=== PATIENT | female | born 1935 | race Caucasian/White ===

== ENCOUNTER 2016-08-15 05:26 | Day surgery (SDC) | payer MEDICARE, BC ==
[~2016-08-15] VITALS: Ht 152.4 cm; Wt 50.8 kg
--- NOTE | ~2016-08-15 | OR ---
PATIENT'S NAME: BHARTI CANCINO [facility] AGE: 81 Y [address] ROOM: [place], [place] [address] LOCATION: [facility] [place] ADMIT DATE: 08/15/2016 OR/Procedure Report DISCHARGE DATE: 08/15/2016 FAMILY PHYSICIAN: Maryse Chou MD ATTENDING PHYSICIAN: Rojelio Fan SURGEON: Rojelio Fan MD KISS MACHINE OPERATOR: DATE OF PROCEDURE: 08/15/2016 PREOPERATIVE DIAGNOSIS: End-stage renal disease. POSTOPERATIVE DIAGNOSIS: End-stage renal disease. PROCEDURE: Left forearm brachiobasilic AV fistula. DIGITAL SALES REPRESENTATIVE: ROSA MARIA Ghotra. ANESTHESIA: General. ESTIMATED BLOOD LOSS: 5 mL. OPERATIVE FINDINGS: There was a good thrill and bruit in the fistula and strong radial and ulnar signal at the end of the case. DETAILS OF PROCEDURE: The patient was brought to the operating room, placed under general anesthesia, and prepped and draped in a sterile manner. Preoperative time-out was performed. The patient received preoperative antibiotics. We made a standard incision 2 cm proximal to the antecubital fossa, dissected down the fascia, and incised the fascia in a longitudinal manner. We dissected out the brachial artery. We then dissected out the basilic vein, which was ligated and transected distally. We then gave 5000 units of heparin. We clamped proximally and distally on the artery. We made an arteriotomy to a size of 4 mm, and then did a standard running 6-0 Prolene anastomosis from the vein to the artery. We removed the clamps. There was excellent flow which was confirmed using Doppler. There was a strong radial and ulnar signal. Heparin was reversed with the use of protamine. The tissues locally were sealed. Hemostasis was achieved locally with thrombin. Deep layers were closed with 2-0 and 3-0 Vicryl. Skin was closed with running 4-0 Monocryl. The patient tolerated the procedure well and was transferred to the recovery room and home later that day. ROJELIO FAN MD PATIENT'S NAME: BHARTI CANCINO [facility] AGE: 81 Y [address] ROOM: [place], [place] [address] LOCATION: [facility] [place] ADMIT DATE: 08/15/2016 OR/Procedure Report DISCHARGE DATE: 08/15/2016 FAMILY PHYSICIAN: Maryse Chou MD ATTENDING PHYSICIAN: Rojelio Fan/mely /[id number] d: 08/15/16 2311 t: 08/16/16 1014, OPERATIVE SUMMARY
[~2016-08-15 05:26] MED LIST: ACIDOPHILUS1 EAC2 PO; ACTOS30 MG PO; ASPIRIN EC81 MG PO; COREG 3.1253.125 MG PO; DEMADEX20 MG PO; GLUCOTROL5 MG PO; IRON65 PO; LANOXIN (DIGI125 MCG PO; LEVOTHROID(SYN75 MCG PO; NEURONTIN300 MG PO; OSCAL500 MG PO; TRIMETHOPRIM100 MG PO; TYLENOL EXTRA500 MG PO; VITAMIN D-40400 UNIT PO; ZYLOPRIM100 MG PO
[2016-08-15 06:22] LABS: BASOPHIL # 0.1 K/uL (0.0-0.2); BASOPHIL % 1.5 %; EOSINOPHIL # 0.1 K/uL (0.0-0.5); EOSINOPHIL % 1.9 %; HEMOGLOBIN 10.4 g/dL (10.0-15.0); IMMATURE GRANULOCYTE % 0.8 %; LYMPHOCYTE # 1.2 K/uL (0.8-4.0); LYMPHOCYTE % 23.2 %; MCH 36.6 pg (27.0-34.0); MCHC 32.5 gm/dL (32.0-36.5); MCV 112.7 fl (83.0-98.0); MONOCYTE # 0.5 K/uL (0.0-1.0); MPV 9.8 fl (9.4-12.4); NEUTROPHIL # (ANC) 3.3 K/uL (1.8-7.8); NEUTROPHIL % 62.6 %; NRBC % 0 /100WBC (0-0.00); PLATELET COUNT 175 K/uL (150-450); RBC 2.84 M/uL (3.00-5.00); WBC 5.3 K/uL (4.0-11.0)
[2016-08-15 06:40] LABS: ALBUMIN 3.5 gm/dL (3.5-5.0); ANION GAP 12.3 (10.0-19.0); CALCIUM 9.3 mg/dL (8.5-10.5); CREATININE 3.4 mg/dL (0.5-1.1); POTASSIUM 4.3 mMol/L (3.7-5.1); TOTAL BILIRUBIN 0.6 mg/dL (0.0-1.5); TOTAL PROTEIN 8.8 g/dL (6.0-8.4)
[2016-08-15] MEDS ORDERED: NORCO 5-325 TA1 EACH PO (11:16)
[2016-10-16] MEDS ORDERED: DEMADEX20 MG PO (10:59)
[2016-10-16] MEDS ORDERED: ALOE VERA25 MG PO (11:01)
== END 2016-08-15 11:35 | disposition disaster alternative care site (69) ==
LOC: GSDC 05:26
PROVIDERS: Surgery Vascular Surgery
PROC: 03180JD Bypass Left Brachial Artery to Upper Arm Vein with Synthetic Substitute, Open Approach (ICD-10-PCS; principal; 2016-08-15)
DX: I13.2 Hypertensive heart and chronic kidney disease with heart failure and with stage 5 chronic kidney disease, or end stage renal disease (principal); N18.6 End stage renal disease; M19.90 Unspecified osteoarthritis, unspecified site; E11.22 Type 2 diabetes mellitus with diabetic chronic kidney disease; I50.9 Heart failure, unspecified; E78.00 Pure hypercholesterolemia, unspecified; I25.2 Old myocardial infarction; Z90.13 Acquired absence of bilateral breasts and nipples; Z98.890 Other specified postprocedural states; Z98.42 Cataract extraction status, left eye; Z98.41 Cataract extraction status, right eye; Z79.899 Other long term (current) drug therapy; Z88.8 Allergy status to other drugs, medicaments and biological substances; Z79.82 Long term (current) use of aspirin; Z91.040 Latex allergy status
CPT/HCPCS: J0690; J1644; J2001; J2250; J2405; J2720; J7030

== ENCOUNTER 2016-10-23 07:12 | Day surgery (SDC) | payer MEDICARE, BC ==
[~2016-10-23] VITALS: Ht 154.9 cm; Wt 54.2 kg
--- NOTE | ~2016-10-23 | OR ---
PATIENT'S NAME: BHARTI CANCINO [facility] AGE: 81 Y [address] ROOM: [place] [address] LOCATION: [facility] [place] ADMIT DATE: 10/23/2016 OR/Procedure Report DISCHARGE DATE: 10/23/2016 FAMILY PHYSICIAN: Maryse Chou MD ATTENDING PHYSICIAN: Rojelio Foster SURGEON: Rojelio Foster MD SLATE HANDLER: DATE OF PROCEDURE: 10/23/2016 PREOPERATIVE DIAGNOSIS: Left basilic fistula too deep to access. POSTOPERATIVE DIAGNOSIS: Left basilic fistula too deep to access. PROCEDURE PERFORMED: Left basilic vein superficialization. INSTRUCTIONAL MANAGER: Nina Ayala, nurse practitioner. She provided retraction as well as closure of the wound. ANESTHESIA: General. ESTIMATED BLOOD LOSS: 15 mL. OPERATIVE FINDINGS: Fistula now located right below the skin. DESCRIPTION OF PROCEDURE: The patient was brought to the operating room, placed supine on the operating table, and prepped and draped in a sterile manner. A preop time-out was performed. The patient received preoperative antibiotics. We made an incision along the entire length of the basilic fistula. We then dissected in a 360-degree fashion. We ligated and transected all branches. We then reapproximated deep layers with 2-0 Vicryl. The skin was closed with interrupted 4-0 nylon. The patient tolerated the procedure well, transferred to the recovery room and home later that day. ROJELIO FOSTER MD FKM/modl /[id number] d: 10/23/16 1843 t: 10/26/16 1120, OPERATIVE SUMMARY
[~2016-10-23 07:12] MED LIST changes: +ALOE VERA25 MG PO; +NORCO 5-325 TA1 EACH PO
[2016-10-23 07:52] LABS: BASOPHIL # 0.1 K/uL (0.0-0.2); BASOPHIL % 0.9 %; EOSINOPHIL # 0.1 K/uL (0.0-0.5); EOSINOPHIL % 1.9 %; HEMATOCRIT 31.9 % (30.0-46.0); HEMOGLOBIN 10.2 g/dL (10.0-15.0); IMMATURE GRANULOCYTE % 0.4 %; LYMPHOCYTE # 0.9 K/uL (0.8-4.0); LYMPHOCYTE % 16.4 %; MCH 36.3 pg (27.0-34.0); MCV 113.5 fl (83.0-98.0); MONOCYTE # 0.5 K/uL (0.0-1.0); MONOCYTE % 9.5 %; MPV 9.7 fl (9.4-12.4); NEUTROPHIL # (ANC) 3.8 K/uL (1.8-7.8); NEUTROPHIL % 70.9 %; NRBC % 0 /100WBC (0-0.00); PLATELET COUNT 139 K/uL (150-450); RBC 2.81 M/uL (3.00-5.00); RDW-CV 15.5 % (11.9-14.6); WBC 5.3 K/uL (4.0-11.0)
[2016-10-23 08:12] LABS: ALBUMIN 3.5 gm/dL (3.5-5.0); ANION GAP 12.3 (10.0-19.0); CALCIUM 9.1 mg/dL (8.5-10.5); POTASSIUM 4.3 mMol/L (3.7-5.1); TOTAL PROTEIN 8.4 g/dL (6.0-8.4)
[2016-10-23 08:26] LABS: CREATININE 4.5 mg/dL (0.5-1.1); TOTAL BILIRUBIN 0.8 mg/dL (0.0-1.5)
[2016-10-23] MEDS ORDERED: ULTRAM50 MG PO (13:30)
== END 2016-10-23 14:25 | disposition disaster alternative care site (69) ==
LOC: GSDC 07:12
PROVIDERS: Surgery Vascular Surgery
PROC: 05WY03Z Revision of Infusion Device in Upper Vein, Open Approach (ICD-10-PCS; principal; 2016-10-23)
DX: E11.22 Type 2 diabetes mellitus with diabetic chronic kidney disease (principal); I13.2 Hypertensive heart and chronic kidney disease with heart failure and with stage 5 chronic kidney disease, or end stage renal disease; I50.9 Heart failure, unspecified; N18.5 Chronic kidney disease, stage 5; E03.9 Hypothyroidism, unspecified; E78.00 Pure hypercholesterolemia, unspecified; I25.2 Old myocardial infarction; M19.90 Unspecified osteoarthritis, unspecified site; Z98.890 Other specified postprocedural states; Z88.6 Allergy status to analgesic agent; Z91.040 Latex allergy status
CPT/HCPCS: J0690; J2001; J2250; J2405; J7030